=== PATIENT | male | born 1970 | race Two or more races ===

== ENCOUNTER → 2018-05-04 | Outpatient (CLI) | payer OTHER | END | disposition home or self-care (01) | LOC: CFH 10:19 | PROVIDERS: ATTEND Nurse Practitioner Family | DX: M47.897 Other spondylosis, lumbosacral region (principal) | CPT/HCPCS: 72114 ==

== ENCOUNTER 2018-11-16 12:02 | Emergency (ER) | payer OTHER ==
[~2018-11-16] VITALS: Ht 165.1 cm; Wt 79.0 kg
[2018-11-16] MEDS ORDERED: DIAZEPAM 5 MG TABLET ONE (12:47)
[2018-11-16] MEDS ORDERED: HYDROcodone/APAP 5/325 TABLET ONE (12:48)
[2018-11-16] MEDS ORDERED: KETOROLAC 30 MG/1 ML ONE (12:48)
--- NOTE | 2018-11-16 12:53 | NUR ---
pt. medicated per sep for 8 back pain.
[2018-11-16] MEDS ORDERED: KETOROLAC 30 MG/1 ML IM ONE (13:00)
[2018-11-16] MEDS ORDERED: HYDROcodone/APAP 5/325 TABLET PO ONE (13:00)
[2018-11-16] MEDS ORDERED: DIAZEPAM 5 MG TABLET PO ONE (13:00)
[2018-11-16 13:20] VITALS: BP 121/71
== END 2018-11-16 13:47 | disposition home or self-care (01) ==
LOC: ED 13:30
DX: G89.29 Other chronic pain (principal); M54.5 Low back pain
CPT/HCPCS: 96372; 99283; J1885

== ENCOUNTER → 2018-11-19 | Outpatient (CLI) | payer OTHER | END | disposition home or self-care (01) | LOC: CFH 10:47 | PROVIDERS: ATTEND Nurse Practitioner Family | DX: M47.27 Other spondylosis with radiculopathy, lumbosacral region (principal); M48.061 Spinal stenosis, lumbar region without neurogenic claudication | CPT/HCPCS: 72148 ==